=== PATIENT | male | born 1940 | race Caucasian/White ===

== ENCOUNTER 2016-12-09 12:45 | Outpatient (RCR) | payer MEDICARE, BC ==
[~2016-12-09 12:45] MED LIST: ALTACE 5MG5 MG PO; ASPIRIN E.C. 8181 MG PO; ELTROXIN PO; FLOMAX 0.40.4 MG/CAP PO; LEVOTHYROXINE0.2 MG PO; METOPROLOL25 MG PO; MIRTAZAPINE15 M1 PO; PRAVACHOL 20MG20 MG PO; PRILOSEC 20MG20 MG PO; SYNTHROID0.125 MG/T PO; TYLENOL PM EXTR1 TA1 PO
[2016-12-23] MEDS ORDERED: SINGULAIR 110 MG/TAB PO (13:08)
[2016-12-23] MEDS ORDERED: VITAMIND3 5000 (13:08)
[2016-12-23] MEDS ORDERED: LOPRESSOR 225 MG/TAB PO (13:10)
[2016-12-23] MEDS ORDERED: NAPROSYN500 MG PO (13:11)
[2016-12-23] MEDS ORDERED: MAGNESIUM500 MG PO (13:11)
[2016-12-23] MEDS ORDERED: NORVASC2.5 MG PO (13:11)
[2016-12-23] MEDS ORDERED: ASPIRIN 32325 MG/TAB PO (13:12)
== END 2017-03-09 | disposition home or self-care (01) ==
LOC: WSST
DX: R09.89 Other specified symptoms and signs involving the circulatory and respiratory systems (principal)
CPT/HCPCS: G8996-GN; G8997-GN; G8998-GN

== ENCOUNTER → 2016-12-17 | Outpatient (CLI) | payer MEDICARE, BC ==
[~2016-12-17] MED LIST changes: +ASPIRIN 32325 MG/TAB PO; +LOPRESSOR 225 MG/TAB PO; +MAGNESIUM500 MG PO; +NAPROSYN500 MG PO; +NORVASC2.5 MG PO; +SINGULAIR 110 MG/TAB PO; +VITAMIND3 5000
== END ==
LOC: COL.RAD 14:29
DX: R13.12 Dysphagia, oropharyngeal phase (principal); R09.89 Other specified symptoms and signs involving the circulatory and respiratory systems
CPT/HCPCS: G8996-GN; G8997-GN; G8998-GN

== ENCOUNTER 2016-12-23 12:33 | Emergency (ER) | payer MEDICARE, BC ==
[~2016-12-23] VITALS: Ht 182.9 cm; Wt 76.8 kg
[2016-12-23 12:33] VITALS: TEMP 97.5
[~2016-12-23 12:33] MED LIST changes: -ASPIRIN 32325 MG/TAB PO; -LOPRESSOR 225 MG/TAB PO; -MAGNESIUM500 MG PO; -NAPROSYN500 MG PO; -NORVASC2.5 MG PO; -SINGULAIR 110 MG/TAB PO; -VITAMIND3 5000
[2016-12-23] MEDS ORDERED: VITAMIND3 5000 (13:08)
[2016-12-23] MEDS ORDERED: SINGULAIR 110 MG/TAB PO (13:08)
[2016-12-23] MEDS ORDERED: LOPRESSOR 225 MG/TAB PO (13:10)
[2016-12-23] MEDS ORDERED: NORVASC2.5 MG PO (13:11)
[2016-12-23] MEDS ORDERED: MAGNESIUM500 MG PO (13:11)
[2016-12-23] MEDS ORDERED: NAPROSYN500 MG PO (13:11)
[2016-12-23 13:12] LABS: BASO # 0.1 (0.0-0.2); BASO % 0.8 % (0.0-2.0); EOS # 0.6 (0.0-0.7); EOS % 6.9 % (0-4.0); GRAN # 6.5 (1.4-6.5); GRAN % 73.4 % (42.2-75.2); LYMPH % 10.9 % (20.0-51.0); MEAN CELL VOLUME 93 fl (80.0-100.0); MEAN CORPUSCULAR HGB CONC 34 g/dl (33.0-37.0); MEAN PLATELET VOLUME 9.1 fl (7.4-10.4); MONO # 0.7 (0.1-0.6); MONO % 7.4 % (1.7-9.3); PLATELET COUNT 247 K/mm3 (130-400); RED BLOOD COUNT 3.66 M/mm3 (4.20-5.60); WHITE BLOOD COUNT 8.8 K/mm3 (4.8-10.8)
[2016-12-23] MEDS ORDERED: ASPIRIN 32325 MG/TAB PO (13:12)
[2016-12-23 13:13] LABS: HEMATOCRIT 34.2 % (42.0-52.0); HEMOGLOBIN 11.5 g/dl (13.5-18.0); MEAN CORPUSCULAR HEMOGLOBIN 31 pg (27.0-31.0)
[2016-12-23 14:02] LABS: ADJUSTED CALCIUM 9.2 mg/dL (8.4-10.2); ALBUMIN 3.5 gm/dL (3.5-5.0); BILIRUBIN,TOTAL 0.6 mg/dL (0.0-1.0); C-REACTIVE PROTEIN 0.5 mg/dL (0.0-0.9); CALCIUM 8.8 mg/dL (8.4-10.2); CREATININE, serum 1.07 mg/dL (0.66-1.25); MAGNESIUM 1.9 mg/dL (1.6-2.3); TOTAL PROTEIN 5.8 gm/dL (6.4-8.2)
[2016-12-23 14:15] LABS: PROLACTIN 66.2 ng/mL (3.7-17.9)
[2016-12-23 14:29] VITALS: BP 164/90; PULSE 56
[2016-12-23 14:31] LABS: COLLECTION METHOD CLEAN CATCH
[2016-12-23 14:59] LABS: MUCOUS Present /lpf; PH 5 (5-8); SQUAMOUS EPITHELIAL 0-2 /hpf; URINE APPEARANCE Clear; URINE BACTERIA None Seen /hpf; URINE BILIRUBIN Negative (NEGATIVE); URINE BLOOD Negative (NEGATIVE); URINE COLOR Yellow; URINE GLUCOSE Negative (NEGATIVE); URINE KETONE 1+ (NEGATIVE); URINE LEUKOCYTE ESTERASE Negative (NEGATIVE); URINE PROTEIN(semi-quant) Negative (NEGATIVE); URINE RBC 0-2 /hpf; URINE UROBILINOGEN Negative (NEGATIVE); URINE WBC 0-2 /hpf
== END 2016-12-23 15:25 | disposition home or self-care (01) ==
LOC: COL.ER
PROVIDERS: Family Medicine
DX: E86.0 Dehydration (principal); R55 Syncope and collapse; I10 Essential (primary) hypertension; N40.0 Benign prostatic hyperplasia without lower urinary tract symptoms; Z87.891 Personal history of nicotine dependence; Z79.82 Long term (current) use of aspirin
CPT/HCPCS: J2405; J7030

== ENCOUNTER 2020-06-22 15:59 | Observation (INO) | payer MEDICARE, BC ==
[~2020-06-22] VITALS: Ht 182.9 cm; Wt 80.4 kg
[~2020-06-22 15:59] MED LIST changes: +ASPIRIN 32325 MG/TAB PO; +LOPRESSOR 225 MG/TAB PO; +MAGNESIUM500 MG PO; +NAPROSYN500 MG PO; +NORVASC2.5 MG PO; +SINGULAIR 110 MG/TAB PO; +VITAMIND3 5000
--- NOTE | 2020-06-22 17:05 | NUR ---
PATIENT ARRIVED TO ROOM 346. PRESENT ON UNIT AND NOTIFIED OF PATIENT ARRIVAL.
[2020-06-22 17:47] VITALS: BP 151/71; PULSE 76; TEMP 97.6
--- NOTE | 2020-06-22 18:30 | NUR ---
PATIENT ADMISSION ASSESSMENTS COMPLETE. MED REC REVIEWED. PATIENT DENYING PAIN AT THIS TIME. ABDOMEN IS DISTENDED BUT SOFT UPON PALPATION. BOWEL SOUNDS HYPERACTIVE ALL FOUR QUADRANTS. WILL REPORT OFF TO ONOCMING NURSE.
[2020-06-22] MEDS ORDERED: YUPELRI175 MCG/3 IH (19:04)
[2020-06-22] MEDS ORDERED: BROVANA15 MCG/2 M IH (19:05)
[2020-06-22 19:29] VITALS: BP 101/62; PULSE 95; TEMP 97.8
--- NOTE | 2020-06-22 20:10 | NUR ---
TAKES HS MEDS WITHOUT PROBLEM. HAS SL TO LEFT AC, NO REDNESS OR SWELLING. IS ALERT AND ORIENTED X4. DENIES PAIN AT THIS TIME.
[2020-06-22 23:45] VITALS: BP 121/61; PULSE 82; TEMP 97.3
[2020-06-23 04:28] VITALS: BP 133/64; PULSE 73; TEMP 97
--- NOTE | 2020-06-23 06:00 | NUR ---
PT HAS BEEN UP INDEPENDENTLY IN ROOM. DENIES ABD PAIN. TAKES AM MED WITHOUT PROBLEM.
[2020-06-23 07:19] VITALS: BP 123/77; PULSE 70; TEMP 97.5
--- NOTE | 2020-06-23 08:00 | NUR ---
Patient in bed resting. Alert and oriented x 3. Assessment complete. Denies pain at this time. INT to LAC without complications. Denies further needs at this time.
--- NOTE | 2020-06-23 10:35 | NUR ---
Dr. Adames in to see patient.
--- NOTE | 2020-06-23 10:55 | NUR ---
Discharge education provided to patient and spouse. All questions answered. Patient to call for follow up appointment. INT to LAC discontinued, catheter tip intact. Denies further needs at this time.
--- NOTE | 2020-06-23 11:03 | NUR ---
Patient out by wheelchair with surgical staff and family
--- NOTE | 2020-06-23 13:03 | NUR ---
Plan to DC home in [place] with Elaine [phone]. Alternate Contacts DTR María Baum Yoli Yepez Client shares that he uses a nebulizer treatment twice a day. Patient denies any other DME. Patient indicated that he has other specialist Dr. Lawson for Urio, Dr. Saavedra PCP and Dr. Egan for Ortho. Patient reports still able to drive, and they is legal POA with documents. Patient shares that he is hard of hearing. Rx obtained and preferred at [facility] without difficulty. No additonal DC concers, educated on services. NF
[2020-07-12] MEDS ORDERED: REMERON30 MG PO (08:30)
[2020-07-12] MEDS ORDERED: MAG-OX 400400 MG/TAB PO (08:32)
[2020-07-12] MEDS ORDERED: YUPELRI175 MCG/3 IH (08:41)
== END 2020-06-23 11:03 | disposition home or self-care (01) ==
LOC: SURG 15:59
PROVIDERS: ADMIT Surgery
DX: K40.90 Unilateral inguinal hernia, without obstruction or gangrene, not specified as recurrent (principal); N18.30 Chronic kidney disease, stage 3 unspecified; I25.10 Atherosclerotic heart disease of native coronary artery without angina pectoris; J44.9 Chronic obstructive pulmonary disease, unspecified; F17.290 Nicotine dependence, other tobacco product, uncomplicated; Z86.79 Personal history of other diseases of the circulatory system; Z95.1 Presence of aortocoronary bypass graft; Z79.82 Long term (current) use of aspirin; Z79.899 Other long term (current) drug therapy; Z86.16 Personal history of COVID-19; Z88.6 Allergy status to analgesic agent; Z88.5 Allergy status to narcotic agent; Z88.8 Allergy status to other drugs, medicaments and biological substances
CPT/HCPCS: G0378

== ENCOUNTER → 2020-07-12 | Day surgery (SDC) | payer MEDICARE, BC ==
[~2020-07-12] VITALS: Ht 182.9 cm; Wt 82.1 kg
[~2020-07-12] MED LIST changes: +BROVANA15 MCG/2 M IH; +MAG-OX 400400 MG/TAB PO; +REMERON30 MG PO; +YUPELRI175 MCG/3 IH
[2020-07-12 08:14] VITALS: BP 1417/81; PULSE 77; TEMP 97.6
[2020-07-12 08:29] LABS: BASO # 0.1 (0.0-0.2); BASO % 1.1 % (0.0-2.0); EOS # 0.4 (0.0-0.7); EOS % 6.7 % (0-4.0); GRAN # 4.7 (1.4-6.5); GRAN % 71.8 % (42.2-75.2); HEMOGLOBIN 10.8 g/dl (13.5-18.0); LYMPH # 0.8 (1.2-3.4); LYMPH % 12.4 % (20.0-51.0); MEAN CELL VOLUME 96 fl (80.0-100.0); MEAN CORPUSCULAR HEMOGLOBIN 31 pg (27.0-31.0); MEAN CORPUSCULAR HGB CONC 32 g/dl (33.0-37.0); MEAN PLATELET VOLUME 9.5 fl (7.4-10.4); MONO # 0.5 (0.1-0.6); MONO % 7.7 % (1.7-9.3); PLATELET COUNT 300 K/mm3 (130-400); RED BLOOD COUNT 3.54 M/mm3 (4.20-5.60); REDCELL DISTRIBUTION WIDTH-CV 13.2 % (11.5-14.5)
[2020-07-12 08:34] LABS: HEMATOCRIT 33.8 % (42.0-52.0)
[2020-07-12 08:39] LABS: CALCIUM 10.1 mg/dL (8.4-10.2); CREATININE, serum 1.95 (0.66-1.25); POTASSIUM 4.9 mmol/L (3.4-5.0)
--- NOTE | 2020-07-12 09:18 | NUR ---
DR SUH INTO TALK WITH PATIENT AND HIS . SURGERY CANCELLED.
== END ==
LOC: SDCO 06:49
PROVIDERS: Surgery
DX: K40.90 Unilateral inguinal hernia, without obstruction or gangrene, not specified as recurrent (principal); Z53.09 Procedure and treatment not carried out because of other contraindication; R06.02 Shortness of breath; J43.1 Panlobular emphysema; I12.9 Hypertensive chronic kidney disease with stage 1 through stage 4 chronic kidney disease, or unspecified chronic kidney disease; N18.30 Chronic kidney disease, stage 3 unspecified; E03.9 Hypothyroidism, unspecified; I48.0 Paroxysmal atrial fibrillation; K21.9 Gastro-esophageal reflux disease without esophagitis; Z95.1 Presence of aortocoronary bypass graft; Z79.82 Long term (current) use of aspirin; Z79.890 Hormone replacement therapy; Z79.899 Other long term (current) drug therapy; Z80.9 Family history of malignant neoplasm, unspecified; Z87.891 Personal history of nicotine dependence
CPT/HCPCS: J0690; J1100; J1885; J2405; J2704; J3010; J7120